=== PATIENT | female | born 1995 | race Caucasian/White ===

== ENCOUNTER 2018-06-27 09:54 | Inpatient (IN) ==
[2018-06-27] MEDS ORDERED: LACTATED RINGER'S 1,000 ML IV PRN ×2 (10:31→11:50)
[2018-06-27] MEDS ORDERED: OXYTOCIN 30 UNITS/500 ML BAG IV PRN (10:31)
[2018-06-27 10:51] LABS: Hematocrit (blood only) 39.9 % (37-47); Hemoglobin 14.2 g/dL (12.0-16.0); Mean Corpuscular Volume 88.5 fL (80-100); Mean Platelet Volume 9.2 fL (7.4-10.4); Platelet Count 252 K/uL (130-400); RDW Standard Deviation 41.9 fL (36.4-46.3); Red Blood Count 4.51 M/uL (4.2-5.4)
[2018-06-27 10:52] LABS: Mean Corpuscular Hgb Conc 35.6 g/dL (32-36)
[2018-06-27] MEDS ORDERED: ePHEDrine sulfate 50 MG/ML AMP ONE (11:02)
[2018-06-27] MEDS ORDERED: BUPIVACAINE 0.25% 30 ML VIAL ONE (11:02)
[2018-06-27] MEDS ORDERED: fentaNYL citrate 100 MCG/2 ML VIAL ONE (11:03)
[2018-06-27] MEDS ORDERED: fentaNYL 2MCG/ML ROPIV 1.25MG/ML 100 ML BAG EPI ONE (11:04)
--- NOTE | 2018-06-27 11:28 | Anesthesiology Consultation ---
Date of Service June 27, 2018 Assessment & Plan (1) Encounter for pre-operative examination: Chart Review Chart Review: Acceptable Risk for Surgery and Acceptable Risk for Labor Epidural History Height/Weight Height: 5 ft 7 in Weight: 101.151 kg Allergies Allergy/AdvReac Type Severity Reaction Status Date / Time Penicillins Allergy Severe HIVES Verified 06/27/18 11:23 Medications Home Medications Medication Instructions Recorded Confirmed Last Taken PNV cmb#95-ferrous fumarate-FA 1 tab PO QAM 06/02/18 06/27/18 06/27/18 [] coenzyme Q10 [CoQ-10] 30 mg PO QAM 06/02/18 06/27/18 06/27/18 valacyclovir 1,000 mg PO QAM 06/02/18 06/27/18 06/27/18 azithromycin 1 tab PO 06/27/18 06/27/18 Active Medications Generic Name Dose Route Start Last Admin Trade Name Freq PRN Reason Stop Dose Admin Lactated Ringer's 1,000 mls @ 999 mls/hr 06/27/18 10:31 06/27/18 10:53 Lr IV 07/27/18 10:30 999 mls/hr .Q1H1M PRN Administration (Pre-Anesthesia) Past Medical History Medical History Genital herpes Heart palpitations PCOS (polycystic ovarian syndrome) Left wrist fracture Trauma left hip Past Surgical History Surgical History No pertinent past surgical history Social History Smoking Status: Former smoker tobacco type: cigarettes Hx Alcohol Use: No Hx Substance Use: No substance use type: does not use Physical Exam Vital Signs Last Vital Signs Temp 36.4 C L 06/27/18 10:06 Pulse 93 H 06/27/18 11:18 Resp 20 06/27/18 10:06 BP 124/84 06/27/18 11:18 Testing Laboratory Results 06/27/18 10:39
[2018-06-27] MEDS: LACTATED RINGER'S 1,000 ML IV SCH ×2 (11:45→19:28)
[2018-06-27] MEDS ORDERED: fentaNYL 2MCG/ML ROPIV 1.25MG/ML 100 ML BAG EPI PRN (11:50)
[2018-06-27] MEDS ORDERED: ePHEDrine sulfate 50 MG/ML AMP IV PRN (11:50)
[2018-06-27] MEDS ORDERED: NALOXONE HCL 0.4 MG/1 ML VIAL/CARP IV PRN (11:50)
--- NOTE | 2018-06-27 12:27 | Labor Progress Brief Note ---
Date of Service June 27, 2018 FHR; CAT1 Ctx 2-4mins VE; 4/50/-2 Admitted for labor H&P done Bedside sono; VT Physical Exam 2 Vital Signs (Past 24 Hours): Last Vital Signs Temp 36.4 C L 06/27/18 10:06 Pulse 83 06/27/18 12:24 Resp 20 06/27/18 10:06 BP 124/58 L 06/27/18 12:24 Pulse Ox 100 06/27/18 12:22
[2018-06-27] MEDS ORDERED: COUGH DROP (SUGAR FREE) LOZ 24 LOZ/1 BOX BUCCAL PRN (14:27)
[2018-06-27] MEDS ORDERED: COUGH DROP (SUGAR FREE) LOZ 24 LOZ/1 BOX BUCCAL ONE (14:29)
--- NOTE | 2018-06-27 15:56 | Labor Progress Brief Note ---
Date of Service June 27, 2018 Pt doing well FHR; CAT1 CTx 1-3mins VE; /-2 Epidural analgesia placed AROM- clear Tobin cath inserted in bladder Physical Exam 2 Vital Signs (Past 24 Hours): Last Vital Signs Temp 37.3 C 06/27/18 14:31 Pulse 97 H 06/27/18 15:52 Resp 18 06/27/18 14:31 BP 123/71 06/27/18 15:32 Pulse Ox 97 06/27/18 15:52
--- NOTE | 2018-06-27 21:25 | Labor Progress Brief Note ---
Date of Service June 27, 2018 Pt doing well AROM: clear FHR; CAT1 Ctx 1-3mins VE; station Physical Exam 2 Vital Signs (Past 24 Hours): Last Vital Signs Temp 36.9 C 06/27/18 21:00 Pulse 93 H 06/27/18 21:22 Resp 18 06/27/18 21:00 BP 135/89 06/27/18 21:01 Pulse Ox 97 06/27/18 21:22
[2018-06-27] MEDS ORDERED: METHYLERGONOVINE MALEATE 0.2 MG/ML AMP ONE (23:37)
[2018-06-28] MEDS ORDERED: BISACODYL 10 MG SUPP PR PRN (00:29)
[2018-06-28] MEDS ORDERED: HYDROCORTISONE ACETATE 25 MG SUPP PR PRN (00:29)
[2018-06-28] MEDS ORDERED: METHYLERGONOVINE MALEATE 0.2 MG/ML AMP IM ONE (00:29)
[2018-06-28] MEDS ORDERED: OXYCODONE/ACETAMINOPHEN 5mg/325mg TAB PO PRN (00:29)
[2018-06-28] MEDS ORDERED: DIPHTHERIA/TETANUS/PERTUSSIS 0.5 ML SYR/VIAL IM ONE (00:29)
[2018-06-28] MEDS ORDERED: SUPERCREAM 0.870% 15 GM JAR EXT PRN (00:29)
[2018-06-28] MEDS ORDERED: ACETAMINOPHEN 325 MG TAB PO PRN (00:29)
[2018-06-28] MEDS ORDERED: miSOPROStol 200 MCG TAB PR ONE (00:29)
[2018-06-28] MEDS ORDERED: OXYTOCIN 30 UNITS/500 ML BAG IV PRN (00:29)
[2018-06-28] MEDS ORDERED: BENZOCAINE 20% AER SPR 82.5 GM CAN EXT PRN (00:29)
[2018-06-28] MEDS ORDERED: ACETAMINOPHEN W/CODEINE #3 1 TAB PO PRN (00:29)
[2018-06-28 00:41] LABS: Base Excess Cord Arterial Bld -5.6 mEq/L (-9-1.8); CO2 Cord Arterial Blood 57 mmHg (39.1-73.5); HCO3 Cord Arterial Blood 23 mmol/L (19.7-28.5); PO2 Cord Arterial Blood 21.1 % (4.1-31.7); pH Cord Arterial Blood 7.22 (7.1-7.38)
[2018-06-28 00:44] LABS: Base Excess Cord Venous Blood -2.7 mEq/L (-7.7-1.9); Cord Venous Blood HCO3 22 mmol/L (18.4-26.8); Cord Venous Blood PCO2 36 mmHg (30.4-57.2); Cord Venous Blood PO2 32 mmHg (14.1-43.3); Cord Venous Blood pH 7.39 (7.20-7.44)
[2018-06-28] MEDS: IBUPROFEN 600 MG TAB PO PRN ×3 (01:10→11:10)
[2018-06-28] MEDS ORDERED: miSOPROStol 200 MCG TAB ONE (03:19)
--- NOTE | 2018-06-28 04:42 | Delivery Summary ---
DATE OF OPERATION: 06/28/2018 DELIVERY NOTE: The patient delivered a live in right occiput anterior presentation. There was a body cord, which was easily reduced. was delivered and placed on mother's abdomen. Infant was delivered to the waiting pediatric team. Cord blood and cord gases were obtained. Placenta is spontaneously delivered. Inspection of the placenta shows a 3-vessel cord. Placenta appears grossly normal. Inspection of the perineum shows a second-degree midline laceration and right periurethral tear, which I repaired in layers with 2-0 and 3-0 Vicryl respectively. Rectal exam post repair shows good sphincter tone. There is good hemostasis. Baby is sent to the nursery. Infant's weight in detail and details, find in the pediatric record. Mother is doing well and stable in recovery. I attest to the content of the Intraoperative Record and any orders documented therein. Any exception s are noted below.
--- NOTE | 2018-06-28 07:05 | Anesthesia Procedure Note ---
Date of Service June 28, 2018 Anesthesia Post Epidural Note Vital Signs Vital Signs: Temp Pulse Pulse Resp BP BP Pulse Ox 06/28/18 03:35 98.6 F 76 18 126/80 06/28/18 02:23 98.4 F 100 H 18 106/69 06/28/18 01:53 89 18 119/80 06/28/18 01:14 90 138/78 06/28/18 01:08 18 06/28/18 01:04 100 H 142/78 H 06/28/18 00:54 101 H 155/81 H 06/28/18 00:53 18 06/28/18 00:46 102 H 99 06/28/18 00:44 100 H 137/82 06/28/18 00:41 105 H 98 06/28/18 00:38 18 06/28/18 00:36 92 H 99 06/28/18 00:33 99 H 137/88 06/28/18 00:30 102 H 95 06/28/18 00:23 98.8 F 100 H 18 132/82 06/28/18 00:22 98 H 100 06/28/18 00:17 106 H 98 06/28/18 00:12 105 H 99 06/28/18 00:07 105 H 97 06/28/18 00:02 112 H 96 06/28/18 00:01 113 H 132/73 06/27/18 23:57 118 H 100 06/27/18 23:55 122 H 131/85 87 L 06/27/18 23:52 120 H 97 06/27/18 23:47 118 H 97 06/27/18 23:42 121 H 97 06/27/18 23:39 128 H 90 06/27/18 23:37 119 H 97 06/27/18 23:32 133 H 131/73 97 06/27/18 23:27 109 H 98 06/27/18 23:22 104 H 98 06/27/18 23:20 109 H 87 L 06/27/18 23:17 92 H 98 06/27/18 23:15 86 78 L 06/27/18 23:14 92 H 140/76 06/27/18 23:12 106 H 97 06/27/18 23:07 111 H 96 06/27/18 23:02 93 H 97 06/27/18 23:00 98.4 F 18 L 06/27/18 22:57 112 H 97 06/27/18 22:52 92 H 95 06/27/18 22:47 101 H 95 06/27/18 22:42 102 H 96 06/27/18 22:39 105 H 131/74 06/27/18 22:37 87 98 06/27/18 22:32 104 H 130/68 97 06/27/18 22:27 89 96 06/27/18 22:22 83 95 06/27/18 22:17 88 95 06/27/18 22:12 81 95 06/27/18 22:07 83 95 06/27/18 22:02 92 H 97 06/27/18 22:01 90 124/70 06/27/18 21:57 98 H 97 06/27/18 21:52 101 H 98 06/27/18 21:47 97 H 97 06/27/18 21:42 97 H 98 06/27/18 21:37 106 H 98 06/27/18 21:32 99 H 98 06/27/18 21:31 104 H 18 139/92 06/27/18 21:27 105 H 98 06/27/18 21:22 93 H 97 06/27/18 21:17 81 97 06/27/18 21:12 84 97 06/27/18 21:07 83 98 06/27/18 21:02 86 97 06/27/18 21:01 89 135/89 06/27/18 21:00 98.4 F 18 02 20:57 122 H 97 06/27/18 20:52 105 H 96 06/27/18 20:47 82 94 06/27/18 20:42 81 94 06/27/18 20:37 83 95 06/27/18 20:32 79 95 06/27/18 20:31 75 116/64 06/27/18 20:27 86 95 06/27/18 20:22 89 94 06/27/18 20:17 79 96 06/27/18 20:12 83 96 06/27/18 20:07 87 96 06/27/18 20:02 80 95 06/27/18 20:01 80 120/68 06/27/18 19:59 18 06/27/18 19:58 85 134/76 06/27/18 19:57 83 95 02/17/19 19:52 94 H 97 021719 19:47 106 H 97 021719 19:42 95 H 97 021719 19:37 95 H 98 021719 19:32 95 H 98 021719 19:31 88 137/84 021719 19:27 94 H 96 021719 19:22 86 96 021719 19:17 85 95 1719 19:12 89 96 1719 19:07 90 96 17 19:02 90 97 17 19:00 98.4 F 90 18 126/74 06/27/18 18:57 95 H 97 06/27/18 18:52 91 H 97 1719 18:47 88 98 19 18:42 91 H 97 19 18:37 86 96 19 18:34 86 132/86 06/27/18 18:32 99 H 96 06/27/18 18:27 78 95 19 18:22 82 98 1719 18:17 89 98 1719 18:12 85 94 1719 18:07 81 95 19 18:02 81 20 124/68 96 1719 17:57 86 95 1719 17:52 85 96 1719 17:47 91 H 97 1719 17:45 98.4 F 18 06/27/18 17:42 92 H 97 1719 17:37 96 H 98 1719 17:32 89 18 129/75 98 021719 17:27 80 96 021719 17:22 86 97 021719 17:17 79 98 021719 17:12 88 98 021719 17:07 82 96 021719 17:02 80 98 021719 17:01 82 18 123/75 021719 16:57 82 97 1719 16:52 87 96 021719 16:47 86 97 1719 16:42 101 H 91 021719 16:37 86 98 1719 16:32 92 H 99 06/27/18 16:31 83 18 122/76 06/27/18 16:27 96 H 98 06/27/18 16:22 91 H 98 06/27/18 16:17 97 H 97 06/27/18 16:12 99 H 98 06/27/18 16:07 99 H 98 06/27/18 16:02 97 H 98 06/27/18 16:01 98.2 F 93 H 20 124/83 06/27/18 15:57 102 H 97 06/27/18 15:52 97 H 97 06/27/18 15:47 87 97 06/27/18 15:42 104 H 98 06/27/18 15:37 106 H 98 06/27/18 15:32 97 H 123/71 98 06/27/18 15:27 109 H 97 06/27/18 15:22 94 H 99 06/27/18 15:17 95 H 99 06/27/18 15:12 99 H 97 06/27/18 15:07 97 H 95 06/27/18 15:02 91 H 97 06/27/18 15:00 89 123/67 06/27/18 14:57 88 96 06/27/18 14:53 96 H 94 06/27/18 14:52 89 96 06/27/18 14:47 88 95 06/27/18 14:45 82 123/65 06/27/18 14:42 84 96 06/27/18 14:39 95 H 89 L 06/27/18 14:37 98 H 97 06/27/18 14:32 87 97 06/27/18 14:31 99.1 F 94 H 18 125/68 06/27/18 14:27 95 H 97 06/27/18 14:22 100 H 97 06/27/18 14:17 111 H 98 06/27/18 14:15 103 H 143/60 H 06/27/18 14:12 112 H 98 06/27/18 14:07 96 H 98 06/27/18 14:02 106 H 20 137/66 97 06/27/18 13:57 92 H 97 06/27/18 13:55 91 H 94 06/27/18 13:52 88 96 06/27/18 13:47 91 H 97 06/27/18 13:45 86 18 120/70 06/27/18 13:42 87 98 06/27/18 13:37 98 H 96 06/27/18 13:32 91 H 98 06/27/18 13:30 82 18 122/74 06/27/18 13:27 84 99 06/27/18 13:22 100 H 98 06/27/18 13:17 95 H 98 06/27/18 13:15 95 H 18 115/72 06/27/18 13:12 101 H 98 06/27/18 13:07 95 H 98 06/27/18 13:02 92 H 97 06/27/18 13:01 99 H 140/75 94 06/27/18 12:58 98.2 F 18 06/27/18 12:57 98 H 98 06/27/18 12:55 108 H 90 06/27/18 12:52 100 H 96 06/27/18 12:47 94 H 97 06/27/18 12:45 99 H 18 119/78 06/27/18 12:42 106 H 98 06/27/18 12:37 101 H 100 06/27/18 12:32 99 H 100 06/27/18 12:30 95 H 18 118/72 06/27/18 12:27 107 H 98 06/27/18 12:24 83 18 124/58 L 06/27/18 12:22 88 100 06/27/18 12:18 103 H 18 123/65 91 06/27/18 12:17 94 H 100 06/27/18 12:13 99 H 18 128/67 06/27/18 12:12 99 H 100 06/27/18 12:09 97 H 18 122/68 90 06/27/18 12:07 101 H 91 06/27/18 12:03 100 H 18 116/61 91 06/27/18 12:02 97 H 99 06/27/18 12:01 117 H 107/58 L 06/27/18 11:59 96 H 107/59 L 06/27/18 11:58 20 06/27/18 11:57 110 H 114/53 L 97 06/27/18 11:55 96 H 110/53 L 06/27/18 11:53 87 101/54 L 06/27/18 11:52 87 98 06/27/18 11:51 94 H 105/53 L 06/27/18 11:49 100 H 119/57 L 06/27/18 11:47 102 H 116/56 L 99 06/27/18 11:45 111 H 129/74 06/27/18 11:42 98 H 124/78 98 06/27/18 11:37 114 H 98 06/27/18 11:32 111 H 99 06/27/18 11:27 101 H 99 06/27/18 11:18 93 H 124/84 06/27/18 10:06 97.5 F L 20 06/27/18 10:00 115 H 156/83 H Notes Mental Status: alert / awake / arousable and participated in evaluation Nausea / Vomiting: adequately controlled Pain: adequately controlled Airway Patency, RR, SpO2: stable & adequate BP & HR: stable & adequate Hydration State: stable & adequate Neuraxial Anesthesia: was administered and sensory block is resolving Anesthetic Complications: no major complications apparent and Pt Satisfied with anesthetic care Epidural: Removed without complications and With tip intact
[2018-06-28] MEDS ORDERED: DOCUSATE SODIUM 100 MG CAP PO SCH (09:00)
[2018-06-28] MEDS ORDERED: FERROUS SULFATE 325 MG TAB PO SCH (09:00)
[2018-06-28] MEDS ORDERED: PRENATAL VITAMIN 1 TAB PO SCH (09:00)
--- NOTE | 2018-06-28 11:09 | History and Physical Report ---
DATE OF ADMISSION: 06/27/2018 HISTORY OF PRESENT ILLNESS: The patient is a 23-year-old G1, P0, due date 06/30/2018 making her 39 weeks and 4 days, on day of admission. The patient presented to L and D on 06/27/2018 complaining of contractions. She was examined on admission and found to be 4 cm, 50% effaced, and -2 station. There was no shortness of breath, no chills, no fever. No rupture of membranes or bloody show. Decision was made to admit patient. course has been unremarkable. LABS: Blood type B positive, antibody negative, rubella immune, GBS negative. PAST MEDICAL HISTORY: 1. History of closed fracture of the femur neck. 2. History of migraines. 3. Allergic rhinitis. 4. History of depression. 5. Genital herpes. 6. PCOS. PAST SURGICAL HISTORY: None. SOCIAL HISTORY: The patient denies tobacco, drug, or alcohol use. ALLERGIES: THE PATIENT IS ALLERGIC TO PENICILLIN. FAMILY HISTORY: Noncontributory. PHYSICAL EXAMINATION: GENERAL: Well-developed, well-nourished white female in no acute distress. HEART: S1, S2, regular rhythm and rate. LUNGS: Clear to auscultation bilaterally. ABDOMEN: Gravid. Bedside ultrasound shows cephalic presentation. PELVIC: No lesions on vulva. Cervix is 4, 50, and -2 station. EXTREMITIES: No cyanosis, clubbing, or edema. ASSESSMENT AND PLAN: A 23-year-old G1, P0 at 39 and 4 weeks, admitted for labor anticipate vaginal delivery with negative group B streptococcus and anticipate vaginal delivery.
--- NOTE | 2018-06-28 11:33 | Obstetrical Progress Note ---
Date of Service June 28, 2018 Subjective Patient is seen and examined. She feels well, no complaints. She likes to be discharged, baby is being transferred to [facility] Ambulating without dizziness Voiding without difficulty Tolerating regular diet with out N&V Bleeding is minimal No fever/ chills/ CP/ SOB/ N&V/ Leg pain/ GAMBLE/ Change in vision/ epigastric or RUQ pain Pumping breast milk without problems Vital Signs Temp Pulse Pulse Resp BP BP Pulse Ox 06/28/18 07:04 36.6 C 86 18 114/80 97 06/28/18 03:35 37 C 76 18 126/80 06/28/18 02:23 36.9 C 100 H 18 106/69 06/28/18 01:53 89 18 119/80 06/28/18 01:14 90 138/78 06/28/18 01:08 18 06/28/18 01:04 100 H 142/78 H 06/28/18 00:54 101 H 155/81 H 06/28/18 00:53 18 06/28/18 00:46 102 H 99 06/28/18 00:44 100 H 137/82 06/28/18 00:41 105 H 98 06/28/18 00:38 18 06/28/18 00:36 92 H 99 06/28/18 00:33 99 H 137/88 06/28/18 00:30 102 H 95 06/28/18 00:23 37.1 C 100 H 18 132/82 06/28/18 00:22 98 H 100 06/28/18 00:17 106 H 98 06/28/18 00:12 105 H 99 06/28/18 00:07 105 H 97 06/28/18 00:02 112 H 96 06/28/18 00:01 113 H 132/73 06/27/18 23:57 118 H 100 06/27/18 23:55 122 H 131/85 87 L 06/27/18 23:52 120 H 97 06/27/18 23:47 118 H 97 06/27/18 23:42 121 H 97 06/27/18 23:39 128 H 90 06/27/18 23:37 119 H 97 06/27/18 23:32 133 H 131/73 97 PE: General: Alert, orientedx3, NAD Abd: soft, NT, fundus firm, below Umbilicus Perineum intact, Lochia rubra minimal Ext; NT, no edema AP: 23 yo s/p , ppd# 1 VSS Afebrile doing well Continue routine care Baby is being transferred to [facility], patient desires to be discharged Discussed when to call, present to ER in details All questions were answered D/C home , f/u in office Physical Exam 2 Vital Signs (Past 24 Hours): Last Vital Signs Temp 36.6 C 06/28/18 07:04 Pulse 86 06/28/18 07:04 Resp 18 06/28/18 07:04 BP 114/80 06/28/18 07:04 Pulse Ox 97 06/28/18 07:04
[2018-06-28] MEDS ORDERED: OXYTOCIN 20 UNITS in LACTATED RINGER'S 1,000 ML IV SCH (20:45)
[2018-06-29] MEDS ORDERED: BISACODYL 5 MG TABEC PO SCH (20:00)
== END 2018-06-28 13:02 | disposition home or self-care (01) | DRG 807 ==
LOC: OPB 09:54 → 4S1 09:55 → 4S2 06-28 02:59

== ENCOUNTER 2023-06-02 07:37 | Inpatient (IN) ==
--- NOTE | 2023-06-02 08:10 | History & Physical Report ---
Date of Service June 02, 2023 Assessment & Plan (1) Encounter for supervision of normal in multigravida: (2) GDM (gestational diabetes mellitus): (3) Insulin resistance: Plan Pt is a 28 yo at 39 4/7 WGA presenting to labor and delivery for induction of labor. Blood type; B+, GBS negative, rubella immune Plan to start oxytocin and rupture membranes later if necessary. Tobin balloon insertion attempted but fell out as pt is 3 cm dilated currently. Proceed with labor and plan for vaginal delivery. Admission and Anticipated Discharge Date Admission Date: June 02, 2023 History of Present Illness Chief Complaint: Induction of labor Primary Care Provider: Jenna Rust PA-C Pt is a 28 y/o female currently at 39 4/7 WGA with an MILO of 06/05/23 as determined by LMP who is here for induction. Her was complicated by GDM on metformin, HSV on valtrex. Pt states she is feeling well today. She states that with her previous the delivery was complicated for her by 2nd degree laceration and states she is unsure if she had hemorrhage last time but remembers getting pills inserted for bleeding control. She states that she states her first baby was 9 lbs and was very difficult to delivery, and then had some issues when they were born so they were transferred, so she stayed here a short time before being discharged to go be with her baby. First delivery was with GMG. She states that this has gone well, she checks her sugars at home and they have been well controlled. She states she has also been having nighttime calf cramps, but during the day she has been okay. No history of blood clots or bleeding disorders in herself. She has not noticed any calf swelling. No further questions or complaints at this time. No contractions yet; feels active movement; no fluid loss; no bloody show. External FHT and external uterine monitors used; Category I tracing; moderate FHT variability, reactive. Had regular appointments with OB. Initial OB Labs 08/11/22 Hep C IgG 13yrs+; neg Pap Test (11/04/22); neg Rubella; positive (immune) RPR; nonreactive HBsAg; neg HIV; neg Blood Type B Positive 11/20/22 Antibody Screen NEGATIVE 12/09/22 Hemoglobin 13.3 g/dl (12.0-16.0) 03/13/23 Hematocrit 37.4 % (37.0-47.0) 03/13/23 Mean Corpuscular Volume 85.1 fL (80.0-100.0) 11/20/22 Platelet Count 329 K/uL (130-400) 11/20/22 OB Optional Labs: Chlamydia trachomatis RNA Not Detected (NotDetected) 10/31/22 Neisseria gonorrhoeae RNA Not Detected (NotDetected) 10/31/22 Thyroid Stimulating Hormone (TSH) 0.71 uIU/mL (0.30-4.50) 08/11/22 Allergies Allergy/AdvReac Type Severity Reaction Status Date / Time Penicillins Allergy Severe HIVES Verified 06/01/23 09:42 Home Medications Medication Instructions Recorded Confirmed Type vit no.95-ferrous 1 tab PO QAM 06/02/18 06/01/23 History fumarate 28 mg-folic acid 800 mcg tablet () albuterol sulfate 90 mcg/actuation 2 puff inhalation Q6H PRN 11/20/22 06/01/23 History aerosol inhaler CONGESTION, COUGH OR WHEEZING calcium 500 mg tablet 500 mg PO BID 11/20/22 06/01/23 History acetone (urine) test (Ketone Urine #50 ea 12/26/22 06/01/23 Rx Test strips) blood sugar diagnostic (OneTouch #150 ea 12/26/22 06/01/23 Rx Verio test strips) blood-glucose meter (OneTouch #1 ea 12/26/22 06/01/23 Rx Verio Reflect Meter) lancets 33 gauge #150 ea 12/26/22 06/01/23 Rx valacyclovir 1 gram tablet 1,000 mg PO DAILY #30 tabs 04/23/23 06/01/23 Rx Patient History Medical History Chicken pox Genital herpes Heart palpitations Left wrist fracture PCOS (polycystic ovarian syndrome) Trauma left hip Varicella vaccine Surgical History No pertinent past surgical history Family History Unknown Cancer Other Colorectal cancer Denies family history of Ovarian cancer Breast cancer Social History (Updated 12/04/22 @ 13:59 by Jessica Mirza RN) Smoking Status: Never smoker Second Hand Exposure: No; Do You Dip or Chew Tobacco: No; Hx Alcohol Use: No Hx Substance Use: No Preferred Language: Turkish Communication Ability: Effective Senior It Recruiter Required: No Beliefs That Will Affect Care: None marital status: marital status details: obie king [phone] Current Living Situation: Family Current Living Situation Comment: Lives with , 5 yo son, [id number], [id number], 2 cats, 2 dogs. current occupational status: unemployed Other Information That Helps Us Care for You: No Feels Safe at Home: Yes Safety Concerns: Feels Safe At This Time Assistive Devices: None OB History Past Pregnancies Del. Date GA wks Lbr Lgth wt Sex Type del Anes Place Del Prov ? Comment 06/27/18 39 8lbs 13.6oz M [facility] Dr Ledbetter LGA, nuchal cord, pt transferred to [facility] NICU - required CPAP, pneumothorax. baby ended up with broken shoulder. Review of Systems no fever, no chills and no sweats no dyspnea no difficulty breathing no chest pain and no palpitations no dysuria no headache(s) no changes in vision Physical Exam Physical Exam: General: Alert, oriented. No acute distress. Cardiac: Regular rate and rhythm, no murmurs, gallops, or rubs. Respiratory: Clear to auscultation bilaterally a/p, no wheezes, rales, or rhonchi. No increased work of breathing. No respiratory distress. Abdomen: Gravid, reactive FHTs. Position: vertex Pelvic: [address] Hamm. Lower extremities: No lower extremity edema or swelling. Legs appear symmetric in size. No deep calf pain. Jorge's negative bilaterally. Supervising Physician Co-Signing Physician Notes Resident Physician Supervision Note: I interviewed and examined the patient. Discussed with Dr. Ramírez and agree with findings and plan as documented in the note. Any exceptions or clarifications are listed here: Patient not on metformin at this time. Has utilized it pre- for insulin resistance, but has been managed as an A1GDM during this gestation. Documented By: Isa Hamm MD, FACOG Resident Activity Tracking Resident Involvement: Resident Care Provided Care Provided: Adult [facility] Medicine
[2023-06-02] MEDS ORDERED: OXYTOCIN 30 UNITS/NSS 30 UNITS/500 ML BAG IV PRN ×2 (08:18)
[2023-06-02] MEDS ORDERED: LIDOCAINE 1% LOCAL 20 ML VIAL INFIL PRN (08:18)
[2023-06-02] MEDS ORDERED: ALBUTEROL HFA 8 GM INHALER INH PRN (08:22)
[2023-06-02] MEDS: LACTATED RINGER'S 1,000 ML IV PRN ×3 (08:52→18:28)
[2023-06-02 09:00] LABS: Hemoglobin 12.9 g/dl (12.0-16.0); Mean Corpuscular Hemoglobin 29.9 pg (25.0-34.0); Mean Corpuscular Hgb Conc 33.9 g/dL (32.0-36.0); Mean Corpuscular Volume 88.2 fL (80.0-100.0); Mean Platelet Volume 9.7 fL (9.4-12.4); Platelet Count 266 K/uL (130-400); RDW Coefficient of Variation 13.4 % (11.5-14.5); RDW Standard Deviation 43.1 fL (36.4-46.3); Red Blood Count 4.31 M/uL (4.20-5.40); White Blood Count 9.23 K/ul (4.8-10.8)
--- NOTE | 2023-06-02 11:24 | Labor Progress Brief Note ---
Date of Service June 02, 2023 Subjective Patient crampy but not requesting epidural yet. Assessment & Plan (1) Encounter for supervision of normal in multigravida: Plan: IOL (elective, in a diet-controlled GDM patient) Continue pitocin, AROM now done, epidural on request. (2) GDM (gestational diabetes mellitus): Admission and Anticipated Discharge Date Admission Date: June 02, 2023 Physical Exam Genitourinary: 140 mod lyndsay +acc -dec Reubens q3 AROM during exam / Well applied vertex Results & Data Vital Signs (Past 12 Hours) Vital Signs Temp Pulse Resp BP 06/02/23 10:59 96 H 06/02/23 10:59 140/94 06/02/23 10:59 93 H 140/91 06/02/23 08:17 98.4 F 117 H 16 131/76 Coding Level of Care Code None Diagnoses Encounter for supervision of normal in multigravida Z34.80 GDM (gestational diabetes mellitus) O24.419
[2023-06-02] MEDS ORDERED: ePHEDrine sulfate 50 MG/ML AMP ONE (14:18)
[2023-06-02] MEDS ORDERED: fentaNYL citrate PF 100 MCG/2 ML VIAL ONE (14:18)
[2023-06-02] MEDS ORDERED: SODIUM CHLORIDE 0.9% PF INJ 10 ML VIAL ONE (14:18)
[2023-06-02] MEDS ORDERED: fentANYL 2 MCG/ML BUPIVacaine 0.125%-NSS 100ML BAG ONE (14:18)
[2023-06-02] MEDS ORDERED: BUPIVACAINE 0.25% PF 30 ML VIAL ONE (14:19)
[2023-06-02] MEDS ORDERED: LIDOCAINE 2%/EPINEPHRINE 1:200,000 20 ML PF ONE (14:19)
[2023-06-02] MEDS ORDERED: NALOXONE HCL 1 MG in SODIUM CHLORIDE 0.9% 1,000 ML IV PRN (14:34)
[2023-06-02] MEDS ORDERED: BUPIVACAINE 0.25% PF 30 ML VIAL EPI STA (14:34)
[2023-06-02] MEDS ORDERED: diphenhydrAMINE 50 MG/ML VIAL IV PRN (14:34)
[2023-06-02] MEDS ORDERED: ROPIVACAINE 0.5% PF 5 MG/ML 20 ML VIAL EPI PRN (14:34)
[2023-06-02] MEDS ORDERED: SODIUM CHLORIDE 0.9% PF INJ 10 ML VIAL EPI PRN (14:34)
[2023-06-02] MEDS ORDERED: NALBUPHINE HCL 5 MG in SYRINGE 0 ML IV PRN (14:34)
[2023-06-02] MEDS ORDERED: fentaNYL citrate PF 100 MCG/2 ML VIAL EPI PRN (14:34)
[2023-06-02] MEDS ORDERED: ePHEDrine sulfate 50 MG/ML AMP IV PRN (14:34)
[2023-06-02] MEDS ORDERED: ONDANSETRON INJ 2 MG/ML 2 ML VIAL IV PRN (14:34)
[2023-06-02] MEDS ORDERED: NALOXONE HCL 0.4 MG/1 ML VIAL/CARP IV PRN (14:34)
[2023-06-02] MEDS ORDERED: fentaNYL citrate PF 100 MCG/2 ML VIAL EPI STA (14:34)
[2023-06-02] MEDS ORDERED: LIDOCAINE 2% MPF LOCAL 5 ML VIAL EPI PRN (14:34)
[2023-06-02] MEDS ORDERED: BUPIVACAINE 0.25% PF 30 ML VIAL EPI PRN (14:34)
[2023-06-02] MEDS ORDERED: LIDOCAINE 2%/EPINEPHRINE 1:200,000 20 ML PF EPI STA (14:34)
[2023-06-02] MEDS ORDERED: SODIUM CHLORIDE 0.9% PF INJ 10 ML VIAL EPI STA (14:34)
[2023-06-02] MEDS ORDERED: fentANYL 2 MCG/ML BUPIVacaine 0.125%-NSS 100ML BAG EPI PRN (14:34)
--- NOTE | 2023-06-02 14:34 | Anesthesiology Consultation ---
Date of Service June 02, 2023 Assessment & Plan ASA ASA2 Proposed Anesthesia Anesthesia Type: Labor Epidural Risk / Benefits Reviewed With: PT / POA / Parent / Guardian, Accepts Plan and Informed Consent Obtained History Height/Weight Height: 5 ft 7 in Weight: 107.048 kg Allergies Allergy/AdvReac Type Severity Reaction Status Date / Time Penicillins Allergy Severe HIVES Verified 06/01/23 09:42 Medications Home Medications Medication Instructions Recorded Confirmed Last Taken vit no.95-ferrous 1 tab PO QAM 06/02/18 06/02/23 06/02/23 07:00 fumarate 28 mg-folic acid 800 mcg tablet () albuterol sulfate 90 mcg/actuation 2 puff inhalation Q6H PRN 11/20/22 06/02/23 Unknown aerosol inhaler CONGESTION, COUGH OR WHEEZING acetone (urine) test (Ketone Urine #50 ea 12/26/22 06/01/23 Unknown Test strips) blood sugar diagnostic (OneTouch #150 ea 12/26/22 06/01/23 Unknown Verio test strips) blood-glucose meter (OneTouch #1 ea 12/26/22 06/01/23 Unknown Verio Reflect Meter) lancets 33 gauge #150 ea 12/26/22 06/01/23 Unknown valacyclovir 1 gram tablet 1,000 mg PO DAILY #30 tabs 04/23/23 06/02/23 06/02/23 07:00 Active Medications Generic Name Dose Route Start Last Admin Trade Name Freq PRN Reason Stop Dose Admin Oxytocin 30 units in 500 mls @ 12 mls/hr 06/02/23 08:18 06/02/23 11:35 Pitocin 30 Units/Nss IV 06/04/23 08:17 0.72 units/hr .Q24H PRN 12 mls/hr Labor Induction/Augmentation Titration Protocol 0.72 UNITS/HR Lactated Ringer's 1,000 mls @ 125 mls/hr 06/02/23 08:18 06/02/23 14:29 Lr IV 06/04/23 08:17 999 mls/hr .Q8H PRN Administration L&D Protocol Protocol Past Medical History Medical History Chicken pox Varicella vaccine Heart palpitations Genital herpes PCOS (polycystic ovarian syndrome) Left wrist fracture Trauma left hip Exercise / Class Metabolic Activity II 4-5 Yardwork/Stairs/Walk up hill Past Family History Family History Unknown Cancer Other Colorectal cancer Denies family history of Ovarian cancer Breast cancer Past Surgical History Surgical History No pertinent past surgical history Past Anesthesia History No Hx of Anesthesia Complications and No Family Hx of Anesthesia Complications History of PONV No Hx of PONV and No Hx of Motion Sickness Social History Smoking Status: Never smoker tobacco type: cigarettes Do You Dip or Chew Tobacco: No Hx Alcohol Use: No Hx Substance Use: No substance use type: does not use Review of Systems denies fever/cough/ colds/ chest pain/ SOB/ MARY denies MARY Physical Exam Vital Signs Last Vital Signs Temp 36.9 C 06/02/23 13:00 Pulse 120 H 06/02/23 15:11 Resp 18 06/02/23 13:00 BP 127/66 06/02/23 15:11 Pulse Ox 99 06/02/23 15:08 ENMT Mouth: no TMJ abnormality and no dentition abnormality Thyromental Distance: > or= 3.5 Finger Breadths Mallampati Class: II Neck neck extension not limited Respiratory normal respiratory effort; no respiratory distress Auscultation: lungs clear to auscultation bilaterally Cardiovascular Rate/Rhythm: regular rate and regular rhythm Neurologic moves all extremities Psychiatric Orientation: alert and oriented x 3 Testing Laboratory Results 06/02/23 08:36 Blood Type B Positive 06/02/23 08:36 Antibody Screen NEGATIVE 06/02/23 08:36 06/02/23 10:12 POC Glucose 91
[2023-06-02] MEDS ORDERED: ACETAMINOPHEN 325 MG TAB PO PRN (16:01)
[2023-06-02] MEDS ORDERED: ACETAMINOPHEN 325 MG TAB ONE (16:03)
--- NOTE | 2023-06-02 16:54 | Labor Progress Brief Note ---
Date of Service June 02, 2023 Subjective Comfortable with epidural Assessment & Plan (1) GDM (gestational diabetes mellitus): Plan: IOL, continue current mgmt Admission and Anticipated Discharge Date Admission Date: June 02, 2023 Physical Exam Genitourinary: 2 Clear LOF FHT Cat 1 [place] Q3 Results & Data Vital Signs (Past 12 Hours) Vital Signs Temp Pulse Resp BP Pulse Ox 06/02/23 16:53 92 H 99 06/02/23 16:48 101 H 98 06/02/23 16:43 97 H 99 06/02/23 16:39 100 H 114/70 06/02/23 16:38 103 H 100 06/02/23 16:33 96 H 98 06/02/23 16:28 104 H 99 06/02/23 16:25 95 H 20 115/73 06/02/23 16:23 97 H 99 06/02/23 16:18 107 H 98 06/02/23 16:13 103 H 99 06/02/23 16:08 109 H 99 06/02/23 16:07 118 H 130/75 06/02/23 16:03 111 H 100 06/02/23 15:58 131 H 151/72 H 99 06/02/23 15:53 115 H 99 06/02/23 15:51 121 H 105/56 L 06/02/23 15:48 111 H 97 06/02/23 15:46 120 H 109/64 06/02/23 15:43 121 H 98 06/02/23 15:42 115 H 113/55 L 06/02/23 15:38 105 H 97 06/02/23 15:35 120 H 136/63 06/02/23 15:34 111 H 20 140/59 L 06/02/23 15:33 113 H 98 06/02/23 15:31 107 H 20 149/70 H 06/02/23 15:29 110 H 20 155/67 H 06/02/23 15:28 99 06/02/23 15:28 115 H 06/02/23 15:28 114 H 20 145/73 H 06/02/23 15:25 139 H 150/83 H 06/02/23 15:23 115 H 20 142/79 H 99 06/02/23 15:21 126 H 137/73 06/02/23 15:19 129 H 20 135/77 06/02/23 15:18 117 H 98 06/02/23 15:17 111 H 143/73 H 06/02/23 15:15 116 H 22 140/69 06/02/23 15:13 133 H 130/79 98 06/02/23 15:11 120 H 127/66 06/02/23 15:09 122 H 22 144/61 H 06/02/23 15:08 99 06/02/23 15:08 122 H 06/02/23 15:08 122 H 157/72 H 06/02/23 15:03 121 H 18 157/92 H 06/02/23 15:00 122 H 172/92 H 06/02/23 14:53 118 H 24 198/112 H 06/02/23 14:36 100 H 98 06/02/23 14:31 102 H 98 06/02/23 14:26 108 H 99 06/02/23 14:24 105 H 136/84 06/02/23 14:20 108 H 151/95 H 06/02/23 14:17 106 H 168/115 H 06/02/23 13:38 100 H 126/71 06/02/23 13:23 96 H 129/73 06/02/23 13:08 94 H 125/75 06/02/23 13:00 18 06/02/23 13:00 98.4 F 18 06/02/23 12:53 98 H 133/66 06/02/23 12:43 98 H 134/65 06/02/23 12:09 92 H 131/70 06/02/23 11:54 93 H 132/68 06/02/23 11:38 90 133/76 06/02/23 10:59 96 H 06/02/23 10:59 140/94 06/02/23 10:59 93 H 140/91 06/02/23 08:17 98.4 F 117 H 16 131/76 Coding Level of Care Code None Diagnoses GDM (gestational diabetes mellitus) O24.419
--- NOTE | 2023-06-03 01:16 | Delivery Summary ---
Vaginal Delivery Summary Date of Service June 03, 2023 Vaginal Delivery Summary DIAGNOSES: 1. Hook intrauterine at 39w5d gestation. 2. Induction of Labor. 3. Group B Streptococcus Neg 4. A1GDM. PROCEDURE: Spontaneous vaginal delivery and repair of second degree laceration. SURGEON: Isa Hamm MD. LOLLYPOP MACHINE OPERATOR: None. ESTIMATED BLOOD LOSS: 400 mL. COMPLICATIONS: None. PLACENTA: Spontaneous and intact with a 3-vessel cord. DISPOSITION: Stable to labor and delivery. DESCRIPTION: The patient pushed well and brought the head to in DOA position. The 's head was allowed to deliver with contraction force and no further active pushing, with the perineum protected during this time. There was one loop of nuchal cord. The left shoulder was anterior. The shoulders and body delivered without any difficulty, and the infant was placed on the maternal abdomen. It was vigorous and moving all extremities, and making respiratory efforts. The cord was doubly clamped by the MD and then cut by the FOB. The placenta delivered spontaneously and was noted to be intact and with a 3VC. The cervix, vagina and perineum were examined and were found to have a second degree laceration, repaired in the usual manner with vicryl suture. The fundus was firm and lochia minimal immediately after delivery. [facility] Vaginal Delivery Charge Vaginal Delivery Codes: 75340 global code for the antepartum, delivery, and post-
[2023-06-03] MEDS ORDERED: oxyCODONE/ACETAMINOPHEN 5mg/325mg TAB PO PRN (01:19)
[2023-06-03] MEDS ORDERED: BENZOCAINE 20% SPRY 85 APPLN/85 GM CAN EXT PRN (01:19)
[2023-06-03] MEDS ORDERED: DIPHTHER/TETAN/PERTUS Vaccine (Tdap, Adol/Adult) 0.5mL IM ONE (01:19)
[2023-06-03] MEDS ORDERED: ACETAMINOPHEN 325 MG TAB PO PRN (01:19)
[2023-06-03] MEDS ORDERED: HYDROCORTISONE ACETATE 25 MG SUPP PR PRN (01:19)
[2023-06-03] MEDS: IBUPROFEN 600 MG TAB PO PRN ×4 (03:02→16:25)
--- NOTE | 2023-06-03 03:07 | Anesthesia Procedure Note ---
Date of Service June 03, 2023 Anesthesia Post Epidural Note Vital Signs Vital Signs: Temp Pulse Resp BP Pulse Ox 36.8 C 103 H 16 122/72 99 06/03/23 02:50 06/03/23 02:44 06/03/23 02:50 06/03/23 02:44 06/03/23 00:48 Notes Mental Status: alert / awake / arousable and participated in evaluation Nausea / Vomiting: adequately controlled Pain: adequately controlled Airway Patency, RR, SpO2: stable & adequate BP & HR: stable & adequate Hydration State: stable & adequate Neuraxial Anesthesia: was administered and sensory block resolved Anesthetic Complications: no major complications apparent and Pt Satisfied with anesthetic care Epidural: Removed without complications and With tip intact
[2023-06-03] MEDS: DOCUSATE SODIUM 100 MG CAP PO SCH ×2 (07:35→20:08)
[2023-06-03] MEDS: PRENATAL VITAMIN 1 TAB PO SCH (07:35)
[2023-06-04] MEDS: IBUPROFEN 600 MG TAB PO PRN (00:16)
[2023-06-04 06:30] LABS: Hematocrit (blood only) 31.5 % (37.0-47.0); Hemoglobin 10.9 g/dl (12.0-16.0); Mean Corpuscular Hemoglobin 30.6 pg (25.0-34.0); Mean Corpuscular Hgb Conc 34.6 g/dL (32.0-36.0); Mean Corpuscular Volume 88.5 fL (80.0-100.0); Mean Platelet Volume 9.6 fL (9.4-12.4); Platelet Count 240 K/uL (130-400); RDW Coefficient of Variation 13.7 % (11.5-14.5); RDW Standard Deviation 44.3 fL (36.4-46.3); Red Blood Count 3.56 M/uL (4.20-5.40); White Blood Count 10.23 K/ul (4.8-10.8)
--- NOTE | 2023-06-04 07:04 | Obstetrical Progress Note ---
Date of Service <Swathi Ramírez DO - Last Filed: 06/04/23 07:04> June 04, 2023 Assessment & Plan <Swathi Ramírez DO - Last Filed: 06/04/23 07:04> (1) care following vaginal delivery: Plan Feels well today. Eating well, voiding well, ambulating well. Pain well controlled with tylenol/motrin. Routine care; OOB, ambulation, continue regular diet. Anticipate discharge 24-48 hours after , likely today. After discharge will have 6 week follow-up with Dr. Hamm. <Tomasz Boss MD, FACOG - Last Filed: 06/04/23 07:58> (1) care following vaginal delivery: Subjective <Swathi Ramírez DO - Last Filed: 06/04/23 07:04> Pt is a 28 y/o female who is PPD#1 following at 39 5/7 weeks. Delivery was uncomplicated. Today, pt states she is feeling well. No questions or complaints at this time. She states she would like to go home today if possible. She has been voiding, ambulating, tolerating diet, and passing gas appropriately after delivery. She has less cramps and bleeding today compared to yesterday. Baby is bottle feeding and doing well. Constitutional: no fever, no chills or no sweats Respiratory: no dyspnea Cardiovascular: no chest pain or no palpitations Breast: no breast pain Genitourinary (female): no dysuria Neurologic: no headache(s) no changes in vision, no headaches Physical Exam <Swathi Ramírez DO - Last Filed: 06/04/23 07:04> General: Alert, oriented. No acute distress. Cardiac: Regular rate and rhythm, no murmurs, rubs, or gallops. Respiratory: Clear to auscultation bilaterally, no wheezes/rales/rhonchi. No increased work of breathing. Symmetrical chest rise. No respiratory distress. Abdomen: Soft, nontender, nondistended. Bowel sounds present. Uterus: Uterine fundus firm, palpable below the umbilicus. Lower extremities: No lower extremity edema or swelling. No deep calf pain. Results & Data <Swathi Ramírez DO - Last Filed: 06/04/23 07:04> Vital Signs (Past 12 Hours) Vital Signs Temp Pulse Resp BP Pulse Ox O2 Del Method 06/04/23 00:15 36.5 C 85 16 130/80 06/03/23 20:07 36.5 C 90 16 144/67 H 100 Room Air Supervising Physician <Tomasz Boss MD, FACOG - Last Filed: 06/04/23 07:58> Co-Signing Physician Notes Resident Physician Supervision Note: I was present with Dr. Ramírez during the history and exam. I discussed the case with the resident and agree with the findings and plan as documented in the note. Any exceptions or clarifications are listed here: [None] Documented By: Tomasz Boss MD, FACOG Resident Activity Tracking <Swathi Ramírez DO - Last Filed: 06/04/23 07:04> Resident Involvement: Resident Care Provided Care Provided: Adult Hospital Medicine
[2023-06-04] MEDS: DOCUSATE SODIUM 100 MG CAP PO SCH (08:04)
[2023-06-04] MEDS: PRENATAL VITAMIN 1 TAB PO SCH (08:04)
== END 2023-06-04 10:25 | disposition home or self-care (01) | DRG 807 ==
LOC: 4S1 07:37 → 4E2 06-03 03:03